=== PATIENT | female | born 1955 | race Caucasian/White ===

== ENCOUNTER 2017-11-14 18:45 | Emergency (ER) | payer SELFPAY ==
[2017-11-14] MEDS: CYCLOBENZAPRINE 10 MG TABLET. PO (19:11)
[2017-11-14] MEDS: NAPROXEN 500 MG TABLET PO (19:11)
[2017-11-14] MEDS: HYDROcodone/APAP 5/325MG 1 TAB TABLET PO (19:12)
== END 2017-11-14 19:20 | disposition home or self-care (01) ==
LOC: ER 19:20
DX: G89.29 Other chronic pain (principal); M54.41 Lumbago with sciatica, right side; M47.896 Other spondylosis, lumbar region
CPT/HCPCS: 99284

== ENCOUNTER 2020-09-26 14:33 | Emergency (ER) | payer MEDICARE ==
[~2020-09-26] VITALS: Ht 167.6 cm; Wt 80.0 kg
[~2020-09-26 14:33] MED LIST: CYCL10TA2 PO; LEVO25TA55 PO; LISI2.5T PO; METH4TAB2 PO; NAPR500T8 PO; PANT40TA77 PO; SERT-266 PO
[2020-09-26 14:41] VITALS: BP 144/87
--- NOTE | 2020-09-26 15:21 | PHYS DOC ---
Past Medical History Past Medical History: Anxiety, Hypothyroid, Other Additional Past Medical Histor: CHRONIC BACK PAIN Past Surgical History: Hysterectomy, Tubal ligation Smoking Status: Never Smoker Alcohol Use: None Drug Use: None General Adult EDM: Chief Complaint: POST-OP PROBLEM HPI: HPI: This is a pleasant 65-year-old female presenting the emergency department today with pain after having a removal of a cyst from her right shoulder. This was removed at another facility. [facility] on [address] [facility] on September 21. The pain is a throbbing aching nonradiating pain. It is localized to this area and not diffuse or generalized. She also complains of protrusion of contents from her vagina. This has been present for a long time and is not new. Review of systems negative for chest pain shortness of breath vomiting diaphoresis fevers or chills. All other review of systems. ED course: 65-year-old female presenting with pain after cyst removal. Exam of the wound is unremarkable. Stitches are in place. No purulent drainage. No fluctuant masses. No erythema. The patient complained of uterine prolapse. I examined the patient in the presence of a female nurse (CHANTEL AMIN). We will refer the patient to urogynecology within the next 5 days for evaluation of potential surgical fixation. Otherwise will discharge patient home to follow-up with the clinic which removed the cyst for suture removals. The patient has been examined and was not found to have an emergency medical condition. The patient was then discharged home in stable condition to follow up with their primary care physician over the next 1-2 days. They were to return if their symptoms worsened or if they were concerned for any reason. They were also instructed to return to the emergency department if they were unable to get the recommended and appropriate follow-up. [id number] discharge instructions and return precautions were given. Patient's questions were answered to their satisfaction. Patient is comfortable with plan. Review of Systems: Review of Systems: Constitutional: Denies fever or chills. [] Eyes: Denies change in visual acuity. [] HENT: Denies nasal congestion or sore throat. [] Respiratory: Denies cough or shortness of breath. [] Cardiovascular: Denies chest pain or edema. [] GI: Denies abdominal pain, nausea, vomiting, bloody stools or diarrhea. [] : Denies dysuria. [] Musculoskeletal: Denies back pain or joint pain. [] Integument: Denies rash. [] Neurologic: Denies headache, focal weakness or sensory changes. [] Endocrine: Denies polyuria or polydipsia. [] Lymphatic: Denies swollen glands. [] Psychiatric: Denies depression or anxiety. [] Heart Score: C/O Chest Pain: No Risk Factors: Risk Factors: DM, Current or recent (<one month) smoker, HTN, HLP, family history of CAD, obesity. Risk Scores: Score 0 - 3: 2.5% MACE over next 6 weeks - Discharge Home Score 4 - 6: 20.3% MACE over next 6 weeks - Admit for Clinical Observation Score 7 - 10: 72.7% MACE over next 6 weeks - Early Invasive Strategies Allergies: Allergies: Allergies Coded Allergies Type Severity Reaction Last Updated Verified Penicillins Allergy Intermediate Rash 11/14/17 Yes codeine Allergy Unknown UNKNOWN 09/26/20 Yes Physical Exam: PE: Constitutional: Well developed, well nourished, no acute distress, non-toxic mark earance. [] HENT: Normocephalic, atraumatic, bilateral external ears normal, oropharynx moist, no oral exudates, nose normal. [] Eyes: PERRLA, EOMI, conjunctiva normal, no discharge. [] Neck: Normal range of motion, no tenderness, supple, no stridor. [] Cardiovascular:Heart rate regular rhythm, no murmur [] Lungs & Thorax: Bilateral breath sounds clear to auscultation [] Abdomen: Bowel sounds normal, soft, no tenderness, no masses, no pulsatile masses. [] exam: Mild protrusion in the vaginal cavity. Otherwise generally unremarkable examination. Examined in the presence of a female nurse. Skin: Warm, dry, no erythema, no rash. [] Patient's right shoulder has a wound from cyst removal with sutures in place. No drainage. No erythema. No fluctuant masses. Healing appropriately. Back: No tenderness, no CVA tenderness. [] Extremities: No tenderness, no cyanosis, no clubbing, ROM intact, no edema. [] Neurologic: Alert and oriented X 3, normal motor function, normal sensory function, no focal deficits noted. [] Psychologic: Affect normal, judgement normal, mood normal. [] Current Patient Data: Vital Signs: Vital Signs Date Time Temp Pulse Resp B/P (MAP) Pulse Ox O2 Delivery O2 Flow Rate FiO2 09/26/20 14:41 97.7 86 16 144/87 (106) 98 Room Air 97.7 EKG: EKG: [] Radiology/Procedures: Radiology/Procedures: [] Course & Med Decision Making: Course & Med Decision Making Pertinent Labs and Imaging studies reviewed. (See chart for details) [] Dragon Disclaimer: Dragon Disclaimer: This electronic medical record was generated, in whole or in part, using a voice recognition dictation system. Departure Departure Impression: Primary Impression: Encounter for medical screening examination Disposition: 01 DC HOME SELF CARE/HOMELESS Condition: STABLE Referrals: NO PCP (PCP) KEY JONES MD Sep 26, 2020 15:21
== END 2020-09-26 15:30 | disposition home or self-care (01) ==
LOC: ER 14:33
DX: G89.18 Other acute postprocedural pain (principal); M25.511 Pain in right shoulder; E03.9 Hypothyroidism, unspecified; G89.29 Other chronic pain; Z88.0 Allergy status to penicillin; Z88.5 Allergy status to narcotic agent
CPT/HCPCS: 99281